=== PATIENT | male | born 1980 | race Caucasian/White ===

== ENCOUNTER 2020-05-29 05:06 | Inpatient (IN) | payer OTHER, SELFPAY ==
--- NOTE | ~2020-05-29 | XR_ITS ---
EXAMINATION: XR elbow RT 2V DATE: 05/30/2020 12:53 INDICATION: Right elbow edema. TECHNIQUE: 2 views of right elbow were obtained. COMPARISON: Right elbow radiographs 07/06/2010 FINDINGS: Bone alignment is normal. No fracture. There is an enthesophyte at the sublime tubercle of proximal ulna. Joint spaces are normal. No elbow joint effusion. There is diffuse subcutaneous edema. IMPRESSION: 1. No fracture. Reviewed, dictated and finalized at location A. ING MACHINE OPERATOR IMPRESSION: 1. No fracture.
--- NOTE | ~2020-05-29 | US_ITS ---
EXAMINATION: US venous doppler [facility] DATE: 05/30/2020 12:48 INDICATION: Upper limb edema. TECHNIQUE: Grayscale ultrasound images without and with compression and Doppler ultrasound images of the bilateral upper extremity veins were obtained. COMPARISON: None. FINDINGS: The visualized portions of the right internal jugular vein, subclavian vein, axillary vein, brachial veins, basilic vein, cephalic vein, radial vein, and ulnar vein are patent. The visualized portions of the left internal jugular vein, subclavian vein, axillary vein, brachial v eins, basilic vein, cephalic vein, radial vein, and ulnar vein are patent. IMPRESSION: 1. No deep venous thrombosis. Reviewed, dictated and finalized at location A. DER OPERATOR EXTERNAL TOOL
[2020-05-29 05:15] VITALS: BP 127/95; PULSE 76; RESP 18; TEMP 36.5; O2SAT 98
[2020-05-29] MEDS: SODIUM CHLORIDE 0.9% IV 1,000 ML 999 ML IV CONT (05:27)
[2020-05-29 05:36] LABS: Basophils Percent Auto 0.5 % (0.2-1.2); Eosinophils Absolute Auto 0.4 K/mm3 (0-0.3); Eosinophils Percent Auto 7.1 % (0-4.4); Hematocrit 43.3 % (42.0-52.0); Hemoglobin 14.7 g/dL (14.0-18.0); Immature Granulocyte Absolute 0.01 K/mm3 (0.00-0.031); Immature Granulocyte Percent A 0.2 % (0-0.5); Lymphocytes Absolute Auto 1.94 K/mm3 (0.9-3.2); Lymphocytes Percent Auto 34.6 % (18.3-44.2); Mean Corpuscular HGB Conc 33.9 g/dl (32-36); Mean Corpuscular Volume 100.2 fl (80-100); Mean Platelet Volume 9.9 fl (7.4-10.4); Monocytes Absolute Auto 0.4 K/mm3 (0.1-0.6); Monocytes Percent Auto 6.4 % (2.6-8.5); Neutrophils Absolute Auto 2.9 K/mm3 (1.3-6.7); Neutrophils Percent Auto 51.2 % (45.5-73.1); Platelet Count Result 216 k/mm3 (150-375); Red Blood Count 4.32 M/mm3 (4.6-6.20); Red Cell Distribution Width 11.6 % (11.5-14.5); White Blood Count 5.6 K/mm3 (4.5-10.0)
--- NOTE | 2020-05-29 05:52 | ED.GENADULT ---
HPI - General Adult General Chief complaint: Extremity Injury, Upper Stated complaint: swelling both arms after lifting weights Time Seen by Provider: 05/29/20 05:09 History of Present Illness HPI narrative: Patient is a 40-year-old male who presents ER with arm swelling. Patient reports couple days ago he did an intense workout with a lot of push-ups and pull-ups. He repeated that a day later. Since then he has developed swelling to his arms as well as discomfort. Is limited range of motion in the right upper extremity at the elbow due to swelling and discomfort. Reports his urine has been more frothy than typical but not darker than typical. Has not had similar symptoms previously. No chest pain or shortness of breath. Related Data Home Medications Medication Instructions Recorded Confirmed No Home Medications 05/29/20 05/29/20 Allergies Allergy/AdvReac Type Severity Reaction Status Date / Time No Known Drug Allergies Allergy Unknown Unknown Verified 05/29/20 05:07 Review of Systems Review of Systems: All systems reviewed & are unremarkable except as noted in HPI and below Constitutional: Constitutional: Denies chills, Denies fever(s) and Denies weakness Cardiovascular: Cardiovascular: Denies chest pain and Denies rapid heart rate Respiratory: Respiratory: Denies cough and Denies dyspnea Gastrointestinal: Gastrointestinal: Denies nausea and Denies vomiting Musculoskeletal: Musculoskeletal: Reports arthralgias, Reports joint swelling and Reports muscle cramps PMFSH Past Medical History Medical History (Updated 05/29/20 @ 20:23 by Edwin De La Torre MD) GERD (gastroesophageal reflux disease) Surgical History Surgical History (Updated 05/29/20 @ 10:42 by Yolanda Michelle PA-C) History of nasal surgery Nasal fracture repair Family History Family History (Updated 05/29/20 @ 11:42 by Yolanda Michelle PA-C) Mother Hypertension Social History Social History (Updated 05/29/20 @ 15:10 by Yolanda Michelle PA-C) Social History: Brett lives at home with his . He is independent in all his ADLs. He manages a bar/restaurant. His PCP is Dr. Pina. He designates his , , as his surrogate decision maker and would like to be a full code. Smoking packs per day: 1 Smoking cigarettes per day: 20.0 Years smoked: 10 Smoking pack-years: 10.00 Smoking status: Former smoker Alcohol intake: current Alcohol use details: 3 alcohol drinks/day Substance use: never Living arrangements: with family Gender identity (if verbalized by the patient): Male Spiritual care concerns: No Exam Narrative: Exam Narrative: GENERAL: Well-appearing, well-nourished, and in no acute distress. HEAD: Normocephalic, atraumatic. CHEST: Clear to auscultation. No respiratory distress. HEART: Regular rate and rhythm. Normal peripheral pulses. EXTREMITIES: Significant edema and swelling from the wrist to the shoulder in the right upper extremity with sensation intact and limited range of motion elbow. Left elbow and proximal forearm with swelling as well as bicep swelling. Range of motion normal. SKIN: Warm, dry, no rash. NEURO: Alert and oriented x3. PSYCH: Normal mood and affect. Course Course Emergency Course: Admit to hospitalist service for rhabdomyolysis and continued hydration. Vital Signs Vital signs: Vital Signs Temperature 97.7 F 05/29/20 05:15 Pulse Rate 76 05/29/20 05:15 Respiratory Rate 18 05/29/20 05:15 Blood Pressure 127/95 H 05/29/20 05:15 Pulse Oximetry 98 05/29/20 05:15 Temperature 98.2 F 05/29/20 14:00 Pulse Rate 69 05/29/20 14:00 Respiratory Rate 18 05/29/20 14:00 Blood Pressure 140/89 05/29/20 14:00 Pulse Oximetry 100 05/29/20 14:00 Medical Decision Making Vital Signs Vital Signs: Vital Signs Temperature 97.7 F 05/29/20 05:15 Pulse Rate 76 05/29/20 05:15 Respiratory Rate 18 05/29/20 05:15 Blood Pressu
[2020-05-29 05:55] LABS: Anion Gap 8 mmol/L (8-16); Blood Urea Nitrogen 9 mg/dL (9-20); Calcium 9.6 mg/dL (8.4-10.2); Carbon Dioxide 26 mmol/L (22-30); Chloride 104 mmol/L (98-107); Estimated Glomerular Filt Rate > 60; Glucose 92 mg/dL (75-110); Potassium 4.6 mmol/L (3.4-5.0); Sodium 138 mmol/L (137-145)
[2020-05-29 06:28] LABS: Creatine Kinase > 16000 U/L (55-170)
[2020-05-29 07:31] VITALS: BP 128/86; PULSE 63; RESP 18; TEMP 36.3; O2SAT 97
--- NOTE | 2020-05-29 07:44 | ADMGEN ---
This patient, Brett Brown, was admitted to Medical Room 249-01. Patient/family oriented to hospital policies and general routines including ID bracelet, bed and alarms, visiting hours, pain management, procedures, bathroom and other care routines, personal items, smoking policy, room service/diet, and visiting hours. Information on how to activate the Rapid Response Team has been discussed. Patient/Family are encouraged to report perceived risks to care and to ask questions if they do not understand what they are told or what they should do.
[2020-05-29 07:52] VITALS: BP 131/83; PULSE 61; RESP 18; TEMP 36.5; O2SAT 100; BMI 28.4
[2020-05-29] MEDS: SODIUM CHLORIDE 0.9% IV 1,000 ML 200 ML IV CONT ×2 (08:07→12:54)
[2020-05-29 09:00] LABS: Alanine Aminotransferase 288 U/L (4-50); Albumin Level 4.8 g/dL (3.5-5.1); Alkaline Phosphatase 48 U/L (38-126); Bilirubin,Total 0.6 mg/dL (0.2-1.3)
[2020-05-29 09:24] LABS: Aspartate Amino Transferase 1498 U/L (17-59)
--- NOTE | 2020-05-29 10:09 | PM.IMHP ---
H&P: HPI History of Present Illness Date/Time: 05/29/20 10:09 Chief Complaint: Muscle pain Narrative: date of admission: 05/29/2020 date of service: 05/29/2020 Brett Brown is a healthy 40 year old male who presented to the emergency department on 05/29/2020 with complaints of muscle soreness. This began 5 days ago. He reports he did a very intense upper body workout with over 100 reps each of pushups and pull-ups. he felt a typical soreness the next day and therefore he completed another workout with high repetition upper body lifting. the next day he felt much worse, reporting 10/10 pain in his upper body with muscle swelling. Any movements or touching of his arms caused him pain. The next day, he was still having pain, although it was improved and he went for a jog. He continue to work at his job where he was lifting heavy boxes. Yesterday, he again went for a jog and noticed that his pain was still ongoing, therefore he researched his symptoms online and felt that he needed to seek medical care. upon presentation to the emergency department, his vital signs were stable, CBC unremarkable, electrolytes were stable, and CK was >16,000. He has been admitted to the hospitalist service for observation. Upon my initial encounter, he states that his pain is improved. He still is endorsing soreness in his arms, especially with extension of the arms. he notes that his upper arms seem a bit swollen bilaterally, especially around the right elbow. He denies discoloration of his extremities, numbness, or tingling. He denies dark urine but does report that his urine has been more foamy than normal. He is being admitted for observation. Supervising physician for this history and physical is Dr. Maykel Taylor. Review of Systems Review of Systems: Narrative: All systems reviewed with pertinent positives and negatives as per HPI. Additionally, he denies nausea, vomiting, fever, chills, dizziness, lightheadedness, weakness, shortness breath, cough, chest pain, or palpitations. denies dysuria, hematuria, urgency, or frequency. Denies abdominal pain, cramping, bloating. He reports regular bowel movements. Denies headache. [facility] Past Medical History Medical History (Updated 05/29/20 @ 11:42 by Yolanda Michelle PA-C) GERD (gastroesophageal reflux disease) Surgical History Surgical History (Updated 05/29/20 @ 10:42 by Yolanda Michelle PA-C) History of nasal surgery Nasal fracture repair Family History Family History (Updated 05/29/20 @ 11:42 by Yolanda Michelle PA-C) Mother Hypertension Social History Social History (Updated 05/29/20 @ 15:10 by Yolanda Michelle PA-C) Social History: Brett lives at home with his . He is independent in all his ADLs. He manages a bar/restaurant. His PCP is Dr. Pina. He designates his , , as his surrogate decision maker and would like to be a full code. Smoking packs per day: 1 Smoking cigarettes per day: 20.0 Years smoked: 10 Smoking pack-years: 10.00 Smoking status: Former smoker Alcohol intake: current Alcohol use details: 3 alcohol drinks/day Substance use: never Living arrangements: with family Gender identity (if verbalized by the patient): Male Spiritual care concerns: No Meds Home Medications and Allergies Home Medications Medication Instructions Recorded Confirmed Type No Home Medications 05/29/20 05/29/20 History Allergies Allergy/AdvReac Type Severity Reaction Status Date / Time No Known Drug Allergies Allergy Unknown Unknown Verified 05/29/20 05:07 Vital Signs Vital Signs - 24 hr 05/29/20 05:15 05/29/20 07:31 05/29/20 07:52 Temperature 97.7 F 97.4 F L 97.7 F Pulse Rate 76 63 61 Respiratory Rate 18 18 18 Blood Pressure 127/95 H 128/86 131/83 Pulse Oximetry 98 97 100 Exam Narrative: Exam Narrative: Mr. Brown is a well-nourished, well-appearing 40-year-old male who is
[2020-05-29 14:00] VITALS: BP 140/89; PULSE 69; RESP 18; TEMP 36.8; O2SAT 100
[2020-05-29 14:44] LABS: Add Urine Microscopic? YES; Appearance Urine Clear (Clear); Bilirubin Urine Negative (Negative); Blood Urine Negative (Negative); Color Urine Straw (Yellow); Glucose Urine UA Negative (Negative); Ketones Urine Trace mg/dL (Negative); Leukocyte Esterase Ur Negative LEU/UL (NEGATIVE); Mucus Urine Rare /lpf; Nitrate Urine Negative (Negative); Protein Urine Negative (Negative); RBC Urine 0-2 /hpf (0-2); Specific Grav Ur 1.008 (1.001-1.035); Urobilinogen Urine Negative mg/dL (<2.0)
[2020-05-29 15:26] LABS: Creatine Kinase > 16000 U/L (55-170)
[2020-05-29] MEDS: SODIUM CHLORIDE 0.9% IV 1,000 ML 150 ML IV CONT ×2 (17:44→23:26)
[2020-05-29] MEDS: HYDROcodone/acetaminophen (*CRX) 5-325 MG TABLET 1 TAB PO ×2 (17:47→21:40)
[2020-05-29 20:00] VITALS: BP 131/71; PULSE 60; RESP 16; TEMP 36.5; O2SAT 100
[2020-05-29] MEDS: MELATONIN 5 MG TABLET PO (21:40)
[2020-05-30 05:04] VITALS: BP 120/79; PULSE 58; RESP 16; TEMP 36.6; O2SAT 100
[2020-05-30] MEDS: SODIUM CHLORIDE 0.9% IV 1,000 ML 150 ML IV CONT (05:21)
[2020-05-30] MEDS: HYDROcodone/acetaminophen (*CRX) 5-325 MG TABLET 1 TAB PO (05:23)
[2020-05-30 05:51] LABS: Hemoglobin 12.9 g/dL (14.0-18.0); Mean Corpuscular HGB Conc 33.1 g/dl (32-36); Mean Corpuscular Hemoglobin 34.3 pg (26-34); Mean Corpuscular Volume 103.7 fl (80-100); Mean Platelet Volume 10.3 fl (7.4-10.4); Platelet Count Result 183 k/mm3 (150-375); Red Blood Count 3.76 M/mm3 (4.6-6.20); Red Cell Distribution Width 11.9 % (11.5-14.5); White Blood Count 5.3 K/mm3 (4.5-10.0)
[2020-05-30 07:55] LABS: Alanine Aminotransferase 187 U/L (4-50); Albumin Level 3.7 g/dL (3.5-5.1); Alkaline Phosphatase 42 U/L (38-126); Anion Gap 1 mmol/L (8-16); Aspartate Amino Transferase 888 U/L (17-59); Bilirubin,Total 0.3 mg/dL (0.2-1.3); Blood Urea Nitrogen 11 mg/dL (9-20); Calcium 8.8 mg/dL (8.4-10.2); Carbon Dioxide 30 mmol/L (22-30); Chloride 108 mmol/L (98-107); Estimated CRCL calculation 94 ml/min; Estimated Glomerular Filt Rate > 60; Glucose 94 mg/dL (75-110); Sodium 139 mmol/L (137-145)
[2020-05-30 09:21] LABS: Creatine Kinase 15191 U/L (55-170)
--- NOTE | 2020-05-30 12:13 | PM.IMPN ---
Progress Note: A&P Assessment and Plan (1) Rhabdomyolysis: Code(s): M62.82 - Rhabdomyolysis Status: Acute Assessment and Plan: Nontraumatic secondary to muscle strain. He does not take any exacerbating medications or supplements. Kidney function is normal. LFTs elevated. UA negative for blood. CK has demonstrated slight improvement. Continue aggressive IV fluid rehydration. Trend CK Monitor LFTs and kidney function. Follow intake and output. Administer 20 mg IV Lasix for diuresis. (2) Elevated LFTs: Code(s): R94.5 - Abnormal results of liver function studies Status: Chronic Assessment and Plan: Likely secondary to rhabdomyolysis as above. Review of office visits demonstrates history of elevated LFTs which was felt to be related to alcohol use and patient cut down alcohol intake. LFTs improved today. Continue to monitor (3) Muscle strain: Code(s): T14.8XXA - Other injury of unspecified body region, initial encounter Status: Acute Assessment and Plan: Secondary to intense physical workout. Patient reports doing 100 reps of pushups and pullups. He developed soreness in his bilateral arms and chest wall. Strength 5/5, bilateral senior outside sales representative strength equal. Neurovascularly intact with good pulses. No evidence to suggest compartment syndrome or neurovascular compromise. Monitor. Can consider imaging if no improvement. Analgesics available as needed for pain. (4) Edema of both upper extremities: Code(s): R60.0 - Localized edema Status: Acute Assessment and Plan: He has edema of the bilateral upper extremities (R>L), most significant at right elbow. Improved on exam today. Full active ROM. No pain. No erythema or warmth. No findings to suggest underlying infection. Nontender to palpation. Check bilateral UE venous doppler to rule out DVT X-ray right elbow to evaluate joint. Consider compression with toya wrap dependent on imaging. Subjective Date/time seen: 05/30/20 12:13 Interval history: Date of service: 05/30/2020 Brett Brown is a healthy 40 year old male who is seen in follow-up for rhabdomyolysis. He is feeling very well today. He has no concerns. He is still endorsing swelling in his upper extremities. He feels that it is improved today. He also feels that he has less discomfort with extension of the upper extremities. His muscle soreness is improving. He denies numbness or tingling. Denies color changes. He has been urinating frequently. Denies dark urine. Appetite has been good. Denies nausea, vomiting, fever, or chills. No shortness of breath, cough, chest pain, or palpitations. He is eager to return home. Review of Systems Review of Systems: All systems reviewed & are unremarkable except as noted in HPI and below Exam Narrative: Exam Narrative: Mr. Brown is a well-nourished, well-appearing 40-year-old male who is lying semi recumbent in bed. He appears comfortable and is in NARD. HR 61, BP 131/83, RR 18, T 97.7?, 100% on room air Neuro: awake, alert and oriented x4, speech clear, no focal neuro deficits noted, bilateral senior outside sales representative strength equal HEENMT: normocephalic, atraumatic, EOMI, sclerae anicteric, moist oral mucosa, tongue midline, nares patent Neck: supple, no lymphadenopathy Respiratory: clear to auscultation bilaterally, nonlabored breathing Cardio: regular rate, regular rhythm with S1-S2 Abdomen: nondistended, normoactive bowel sounds, soft, nontender to palpation, no rigidity or guarding Extremities: upper extremities slightly edematous bilaterally, nonpitting (R>L). Right elbow is edematous. 2+ radial pulses. Neurovascularly intact. No discoloration. Brisk capillary refill. Full active ROM. Bilateral lower extremities with no edema, erythema, cyanosis, clubbing, or tenderness to palpation, DP pulses 2+ bilaterally Skin: no rashes or lesions, warm and dry Psych: appropriate mood and aff
[2020-05-30] MEDS: SODIUM CHLORIDE 0.9% IV 1,000 ML 200 ML IV CONT ×3 (13:21→23:39)
[2020-05-30 14:00] VITALS: BP 132/78; PULSE 61; RESP 16; TEMP 35.7; O2SAT 100
[2020-05-30 16:00] VITALS: BP 132/78; PULSE 61; RESP 16; TEMP 35.7; O2SAT 100
[2020-05-30] MEDS: FUROSEMIDE INJ 40 MG/4 ML VIAL 20 MG IV PUSH (16:54)
[2020-05-30] MEDS: MELATONIN 5 MG TABLET PO (20:38)
[2020-05-30 21:37] VITALS: BP 126/71; PULSE 75; RESP 16; TEMP 36.4; O2SAT 100
[2020-05-31] MEDS: SODIUM CHLORIDE 0.9% IV 1,000 ML 200 ML IV CONT ×3 (04:45→15:19)
[2020-05-31 06:07] VITALS: BP 117/81; PULSE 64; RESP 16; TEMP 36.3; O2SAT 100
[2020-05-31 06:20] LABS: Hematocrit 38.3 % (42.0-52.0); Hemoglobin 12.6 g/dL (14.0-18.0); Mean Corpuscular HGB Conc 32.9 g/dl (32-36); Mean Corpuscular Hemoglobin 33.6 pg (26-34); Mean Corpuscular Volume 102.1 fl (80-100); Mean Platelet Volume 10.8 fl (7.4-10.4); Platelet Count Result 193 k/mm3 (150-375); Red Blood Count 3.75 M/mm3 (4.6-6.20); Red Cell Distribution Width 11.6 % (11.5-14.5); White Blood Count 5.4 K/mm3 (4.5-10.0)
[2020-05-31 06:36] LABS: Alanine Aminotransferase 176 U/L (4-50); Albumin Level 3.8 g/dL (3.5-5.1); Alkaline Phosphatase 48 U/L (38-126); Anion Gap 4 mmol/L (8-16); Aspartate Amino Transferase 741 U/L (17-59); Bilirubin,Total 0.2 mg/dL (0.2-1.3); Blood Urea Nitrogen 10 mg/dL (9-20); Calcium 8.8 mg/dL (8.4-10.2); Carbon Dioxide 28 mmol/L (22-30); Chloride 107 mmol/L (98-107); Estimated CRCL calculation 107 ml/min; Estimated Glomerular Filt Rate > 60; Glucose 93 mg/dL (75-110); Potassium 3.8 mmol/L (3.4-5.0); Sodium 139 mmol/L (137-145)
[2020-05-31 09:14] LABS: Creatine Kinase 10989 U/L (55-170)
[2020-05-31 14:00] VITALS: BP 144/91; PULSE 65; RESP 16; TEMP 36.5; O2SAT 100
--- NOTE | 2020-05-31 16:09 | PM.IMPN ---
Progress Note: A&P Assessment and Plan (1) Rhabdomyolysis: Code(s): M62.82 - Rhabdomyolysis Status: Acute Assessment and Plan: Nontraumatic secondary to muscle strain. He does not take any exacerbating medications or supplements. Kidney function is normal. LFTs elevated. UA negative for blood. CK slowly improving. Urine output is good. Continue aggressive IV fluid rehydration. Trend CK Monitor LFTs and kidney function. Follow intake and output. Administer 20 mg IV Lasix for diuresis. (2) Elevated LFTs: Code(s): R94.5 - Abnormal results of liver function studies Status: Chronic Assessment and Plan: Likely secondary to rhabdomyolysis as above. Review of office visits demonstrates history of elevated LFTs which was felt to be related to alcohol use and patient cut down alcohol intake. LFTs improved today. Continue to monitor (3) Muscle strain: Code(s): T14.8XXA - Other injury of unspecified body region, initial encounter Status: Acute Assessment and Plan: Secondary to intense physical workout. Patient reports doing 100 reps of pushups and pullups. He developed soreness in his bilateral arms and chest wall. Strength 5/5, bilateral subacute nurse strength equal. Neurovascularly intact with good pulses. No evidence to suggest compartment syndrome or neurovascular compromise. Discomfort is improving. Monitor clinically. Analgesics available as needed for pain. (4) Edema of both upper extremities: Code(s): R60.0 - Localized edema Status: Acute Assessment and Plan: He has edema of the bilateral upper extremities (R>L), most significant at right elbow. Improved on exam today. Full active ROM. No erythema or warmth. No findings to suggest underlying infection. Nontender to palpation. Bilateral UE venous doppler negative for DVT. X-ray with no fracture or joint effusion with findings of diffuse subcutaneous edema, which is likely secondary to rhabdo. Elevate extremities. GISELLE wrap can be applied if patient desires. Subjective Date/time seen: 05/31/20 16:09 Interval history: Date of service: 05/31/2020 Brett Brown is a healthy 40 year old male who is seen in follow-up for rhabdomyolysis. he is feeling well today and has no concerns. He reports he is getting a little bit antsy about being stuck in the hospital, but overall he is tolerating this pretty well. He is not having any pain today. He notes that his left arm feels a little bit sore and he has some tightness with extension of it. Overall, he does think that his muscle pain is improving. He also reports improved swelling of his upper extremities. He has been urinating frequently due to IV fluids. He has no additional concerns. He has been eating well. He has no shortness of breath or cough. Denies lower extremity swelling. Review of Systems Review of Systems: All systems reviewed & are unremarkable except as noted in HPI and below Exam Narrative: Exam Narrative: Mr. Brown is a well-nourished, well-appearing 40-year-old male who is lying semi recumbent in bed. He appears comfortable and is in NARD. HR 64, BP 117/81 R 16, T 97.3?, 100% on room air Neuro: awake, alert and oriented x4, speech clear, no focal neuro deficits noted, bilateral subacute nurse strength equal HEENMT: normocephalic, atraumatic, EOMI, sclerae anicteric, moist oral mucosa, tongue midline, nares patent Neck: supple, no lymphadenopathy Respiratory: clear to auscultation bilaterally, nonlabored breathing Cardio: regular rate, regular rhythm with S1-S2 Abdomen: nondistended, normoactive bowel sounds, soft, nontender to palpation, no rigidity or guarding Extremities: upper extremities slightly edematous bilaterally, nonpitting (R>L). Right elbow is edematous. 2+ radial pulses. Neurovascularly intact. No discoloration. Brisk capillary refill. Full active ROM. Bilateral lower extremities with no edema, e
[2020-05-31] MEDS: FUROSEMIDE INJ 40 MG/4 ML VIAL 20 MG IV PUSH (17:10)
[2020-05-31] MEDS: MELATONIN 5 MG TABLET PO (20:27)
[2020-05-31] MEDS: SODIUM CHLORIDE 0.9% IV 1,000 ML 175 ML IV CONT (20:29)
[2020-05-31 22:00] VITALS: BP 161/77; PULSE 55; RESP 20; TEMP 36.1; O2SAT 99
[2020-06-01] MEDS: SODIUM CHLORIDE 0.9% IV 1,000 ML 175 ML IV CONT ×3 (02:20→14:40)
[2020-06-01 05:47] LABS: Hematocrit 36.8 % (42.0-52.0); Mean Corpuscular HGB Conc 32.6 g/dl (32-36); Mean Corpuscular Hemoglobin 33.3 pg (26-34); Mean Corpuscular Volume 102.2 fl (80-100); Mean Platelet Volume 10.5 fl (7.4-10.4); Platelet Count Result 180 k/mm3 (150-375); Red Cell Distribution Width 11.5 % (11.5-14.5); White Blood Count 5.1 K/mm3 (4.5-10.0)
[2020-06-01 05:58] LABS: Alanine Aminotransferase 157 U/L (4-50); Albumin Level 3.7 g/dL (3.5-5.1); Alkaline Phosphatase 37 U/L (38-126); Anion Gap 7 mmol/L (8-16); Aspartate Amino Transferase 507 U/L (17-59); Bilirubin,Total 0.2 mg/dL (0.2-1.3); Blood Urea Nitrogen 13 mg/dL (9-20); Calcium 8.7 mg/dL (8.4-10.2); Carbon Dioxide 24 mmol/L (22-30); Chloride 110 mmol/L (98-107); Estimated CRCL calculation 107 ml/min; Estimated Glomerular Filt Rate > 60; Glucose 99 mg/dL (75-110); Potassium 3.9 mmol/L (3.4-5.0); Sodium 141 mmol/L (137-145)
[2020-06-01 06:00] VITALS: BP 133/80; PULSE 51; RESP 21; TEMP 36.6; O2SAT 100
[2020-06-01 06:29] LABS: Creatine Kinase 7092 U/L (55-170)
--- NOTE | 2020-06-01 09:11 | PM.IMPN ---
Progress Note: A&P Assessment and Plan (1) Rhabdomyolysis: Code(s): M62.82 - Rhabdomyolysis Status: Acute Assessment and Plan: Nontraumatic secondary to muscle strain. He does not take any exacerbating medications or supplements. Kidney function is normal. LFTs elevated. UA negative for blood. CK continues to improve. Urine output is good. Continue IV fluid rehydration, will decrease rate to 150cc/hr Trend CK Monitor LFTs and kidney function Follow intake and output (2) Elevated LFTs: Code(s): R94.5 - Abnormal results of liver function studies Status: Chronic Assessment and Plan: Likely secondary to rhabdomyolysis as above. Review of office visits demonstrates history of elevated LFTs which was felt to be related to alcohol use and patient cut down alcohol intake. LFTs continue to improve. Continue to monitor Will check hepatitis panel (3) Muscle strain: Code(s): T14.8XXA - Other injury of unspecified body region, initial encounter Status: Acute Assessment and Plan: Secondary to intense physical workout. Patient reports doing 100 reps of pushups and pullups. He developed soreness in his bilateral arms and chest wall. Strength 5/5, bilateral warehouse director strength equal. Neurovascularly intact with good pulses. No evidence to suggest compartment syndrome or neurovascular compromise. Monitor clinically Analgesics available as needed for pain (4) Edema of both upper extremities: Code(s): R60.0 - Localized edema Status: Acute Assessment and Plan: He has edema of the bilateral upper extremities (R>L) which is improving. He has full active ROM and no erythema, warmth, or tenderness. No findings to suggest underlying infection.Bilateral UE venous doppler negative for DVT. X-ray with no fracture or joint effusion with findings of diffuse subcutaneous edema, which is likely secondary to rhabdo. Elevate extremities GISELLE wrap can be applied if patient desires Additional Plan Order EKG due to ectopy, he did just drink 3 cups of coffee which likely provoked this. Subjective Date/time seen: 06/01/20 09:11 Interval history: Mr. Brown is a healthy 40 y.o. male with PMH significant for GERD who is seen in follow-up for rhabdomyolysis secondary to muscle strain following an intense upper body workout. He is doing well. He reports no significant muscle pain. He notes a bit of swelling in the upper extremities, more prominent on the right, but overall improved. He notes frequent urination due to IV fluids. He is very eager to go home. Bowels are regular. He has no additional complaints. He is tolerating his diet well. He reports no palpitations. Review of Systems Review of Systems: All systems reviewed & are unremarkable except as noted in HPI and below Exam Narrative: Exam Narrative: General: Very pleasant, well-developed, and well-nourished 40 y.o. male who is sitting in the chair watching TV in no acute distress. HEENMT: Normocephalic and atraumatic. Sclera anicteric. EOMI. Oral mucosa moist. Neck: Supple. Cardiac: Regular rate and rhythm. S1 and S2 normal. Occasional ectopy. Lungs: Effort normal. Lungs are clear to auscultation bilaterally without wheezes, rhonchi, or rales. Abdomen: Bowel sounds positive. Abdomen is soft, non-distended, and non-tender. Extremities: Scant LUE edema and 1+ RUE edema. No lower extremity edema. Radial and pedal pulses 2+ bilaterally. Neurological: Alert. Exam non-focal to casual conversation. Speech is clear. Skin: Warm and dry. Psychiatric: Judgment and insight intact. Pleasant mood and appropriate affect. Objective Data Vital Signs Vital Signs: Vital Signs - 24 hr 05/31/20 14:00 05/31/20 22:00 06/01/20 06:00 Temperature 97.7 F 97.0 F L 97.8 F Pulse Rate 65 55 L 51 L Respiratory Rate 16 20 21 H Blood Pressure 144/91 H 161/77 H 133/80 Pulse Oximetry 100 99 100 Intake/Output I
--- NOTE | 2020-06-01 09:36 | ECG_ITS ---
Measurements Intervals [place] Rate: 73 P: 44 DE: 199 QRS: 19 QRSD: 88 T: 17 QT: 381 QTc: 420 Interpretive Statements SINUS RHYTHM VENTRICULAR BIGEMINY AND TRIGEMINY VOLTAGE CRITERIA FOR LVH BASELINE ARTIFACT- I, II, III, AVR, AVL, AVF, V1-V2 ABNORMAL ECG Electronically Signed On 06-01-2020 11:58:53 OUTBOUND TELEMARKETER by Cristino Bradford D.O.
[2020-06-01 10:51] LABS: Hepatitis B Surface Antigen Negative (Negative)
[2020-06-01 10:57] LABS: HAV RESULT Negative (Negative); Hepatitis B Core IgM Result Negative (Negative)
[2020-06-01 11:09] LABS: Hepatitis C Virus Antibody Negative (Negative)
--- NOTE | 2020-06-01 13:20 | PC.NURSE ---
On 06/01/20, the student, [ Dilma Keane], provided care and completed [facility] documentation on this patient. I have reviewed the student's documentation and agree with the findings.
[2020-06-01 15:00] VITALS: PULSE 55; RESP 12; TEMP 36.6; O2SAT 100
[2020-06-01 15:43] VITALS: BP 138/90
[2020-06-01 21:56] VITALS: BP 135/78; PULSE 96; RESP 18; TEMP 36.5; O2SAT 100
[2020-06-01] MEDS: MELATONIN 5 MG TABLET PO (22:28)
[2020-06-01] MEDS: ENOXAPARIN 40 MG/0.4 ML SYRINGE SUB-Q (22:28)
[2020-06-01] MEDS: SODIUM CHLORIDE 0.9% IV 1,000 ML 125 ML IV CONT (22:28)
[2020-06-02] VITALS: BP 151/86; PULSE 90; RESP 20; TEMP 36.1; O2SAT 96
--- NOTE | 2020-06-02 | ECHO_ITS ---
Patient Info Name: Brett Brown Age: 40 years : 1980 Gender: Male Ht: 66 in Wt: 176 lbs BSA: 1.95 m2 HR: 70 bpm BP: 134 / 87 mmHg Heart Rhythm: Sinus Arrhythmia Technical Quality: Good Exam Date: 06/02/2020 10:32 AM Exam Location: [facility] Patient Status: Inpatient Admit Date: 05/31/2020 Staff Ordering Physician: Julianna Cruz PA-C Fast Food Worker: Mitchel Moseley RDCS Attending Provider: Julianna Cruz PA-C Referring Physician: Anthony MORRISON; Exam Type: CA echo doppler color flow Study Info Indications I49.9 - Cardiac arrhythmia, unspecified Complete two-dimensional, color flow and Doppler transthoracic echocardiogram is performed. History/Risk Factors Rhabdomyolosis; LVH on EKG w/ bigeminy and trigeminy. Summary 1. Complete two-dimensional, color flow and Doppler transthoracic echocardiogram is performed. 2. Normal left ventricular size with borderline left ventricular hypertrophy. Good systolic function of all segments with an ejection fraction of 60-65%. There were no focal wall motion abnormalities. Normal diastolic function. 3. No valvular heart disease. 4. Normal sinus rhythm with PVCs. Left Ventricle Left ventricular chamber dimension is normal. Left ventricular systolic function is normal, estimated at 60-65%. There is no increased left ventricular wall thickness. Left ventricular septal wall motion is normal. The left ventricular diastolic function is normal. Right Ventricle Right ventricular chamber dimension is normal. Right ventricular systolic function is normal. Left Atria Left atrial chamber dimension is normal. Right Atria Right atrial chamber dimension is normal. Aortic Valve The aortic valve is trileaflet. There is no aortic valve sclerosis. There is no aortic valve stenosis. There is no aortic valve regurgitation. Pulmonic Valve The pulmonic valve is normal. There is no pulmonic valve stenosis. There is no pulmonic regurgitation. Mitral Valve The mitral valve has normal leaflets. There is no mitral valve stenosis. There is trace mitral valve regurgitation. Tricuspid Valve The tricuspid valve leaflets are normal. There is no significant tricuspid valve stenosis. There is trace tricuspid valve regurgitation. No pulmonary hypertension, estimated pulmonary arterial systolic pressure is 33 mmHg. Pericardium/Pleural The pericardium appears normal. There is no pericardial effusion. Inferior Vena Cava Normal inferior vena cava with >50% collapse upon inspiration consistent with Empty right atrial pressure, 5 mmHg. Aorta The aortic root size at the sinus of Valsalva is normal. The prox ascending aorta size is normal. Left Ventricular Outflow Tract Name Value Normal LVOT 2D LVOT Diameter 2.3 cm LVOT Doppler LVOT Peak Gradient 5 mmHg LVOT Mean Gradient 3 mmHg LVOT VTI 24 cm LVOT VTI/AV VTI Ratio 0.9 LVOT Stroke Volume 94 ml LVO
[2020-06-02 05:00] VITALS: BP 134/87; PULSE 51; RESP 18; TEMP 36.4; O2SAT 98
[2020-06-02] MEDS: SODIUM CHLORIDE 0.9% IV 1,000 ML 125 ML IV CONT ×3 (06:21→23:49)
[2020-06-02 07:05] LABS: Basophils Absolute Auto 0.1 K/mm3 (0.0-0.1); Eosinophils Absolute Auto 0.4 K/mm3 (0-0.3); Eosinophils Percent Auto 7.2 % (0-4.4); Hematocrit 39.6 % (42.0-52.0); Hemoglobin 13.2 g/dL (14.0-18.0); Immature Granulocyte Absolute 0.01 K/mm3 (0.00-0.031); Immature Granulocyte Percent A 0.2 % (0-0.5); Lymphocytes Absolute Auto 1.85 K/mm3 (0.9-3.2); Lymphocytes Percent Auto 35.9 % (18.3-44.2); Mean Corpuscular HGB Conc 33.3 g/dl (32-36); Mean Corpuscular Volume 102.1 fl (80-100); Mean Platelet Volume 10.7 fl (7.4-10.4); Monocytes Absolute Auto 0.4 K/mm3 (0.1-0.6); Monocytes Percent Auto 8.5 % (2.6-8.5); Neutrophils Absolute Auto 2.4 K/mm3 (1.3-6.7); Neutrophils Percent Auto 47.2 % (45.5-73.1); Platelet Count Result 203 k/mm3 (150-375); Red Blood Count 3.88 M/mm3 (4.6-6.20); Red Cell Distribution Width 11.6 % (11.5-14.5); White Blood Count 5.2 K/mm3 (4.5-10.0)
[2020-06-02 07:06] LABS: Alanine Aminotransferase 164 U/L (4-50); Albumin Level 4.5 g/dL (3.5-5.1); Alkaline Phosphatase 35 U/L (38-126); Anion Gap 7 mmol/L (8-16); Aspartate Amino Transferase 414 U/L (17-59); Bilirubin,Total 0.3 mg/dL (0.2-1.3); Blood Urea Nitrogen 13 mg/dL (9-20); Calcium 9.6 mg/dL (8.4-10.2); Carbon Dioxide 29 mmol/L (22-30); Chloride 106 mmol/L (98-107); Estimated CRCL calculation 107 ml/min; Estimated Glomerular Filt Rate > 60; Glucose 75 mg/dL (75-110); Potassium 3.5 mmol/L (3.4-5.0); Sodium 142 mmol/L (137-145)
[2020-06-02 08:11] LABS: Folic Acid 13.5 ng/mL (2.76->20)
[2020-06-02 08:34] LABS: Creatine Kinase 4970 U/L (55-170)
--- NOTE | 2020-06-02 09:02 | PM.IMPN ---
Progress Note: A&P Assessment and Plan (1) Rhabdomyolysis: Code(s): M62.82 - Rhabdomyolysis Status: Acute Assessment and Plan: Nontraumatic secondary to muscle strain. He does not take any exacerbating medications or supplements. Kidney function is normal. LFTs elevated. UA negative for blood. CK continues to improve. Urine output is good. Continue IV fluid rehydration Trend CK Monitor LFTs and kidney function Follow intake and output (2) Elevated LFTs: Code(s): R94.5 - Abnormal results of liver function studies Status: Chronic Assessment and Plan: Likely secondary to rhabdomyolysis as above. Review of office visits demonstrates history of elevated LFTs which was felt to be related to alcohol use and patient cut down alcohol intake. LFTs continue to improve. Hepatitis panel was negative. Continue to monitor (3) Muscle strain: Code(s): T14.8XXA - Other injury of unspecified body region, initial encounter Status: Acute Assessment and Plan: Secondary to intense physical workout. Patient reports doing 100 reps of pushups and pullups. He developed soreness in his bilateral arms and chest wall. Strength 5/5, bilateral disk sander strength equal. Neurovascularly intact with good pulses. No evidence to suggest compartment syndrome or neurovascular compromise. Monitor clinically Analgesics available as needed for pain (4) Edema of both upper extremities: Code(s): R60.0 - Localized edema Status: Acute Assessment and Plan: He has edema of the bilateral upper extremities (R>L) which has nearly resolved. He has full active ROM and no erythema, warmth, or tenderness. No findings to suggest underlying infection.Bilateral UE venous doppler negative for DVT. X-ray with no fracture or joint effusion with findings of diffuse subcutaneous edema, which is likely secondary to rhabdo. Elevate extremities GISELLE wrap can be applied if patient desires (5) LVH (left ventricular hypertrophy): Code(s): I51.7 - Cardiomegaly Status: Acute Assessment and Plan: EKG demonstrated voltage criteria for LVH. Check echocardiogram for further evaluation (6) PVC (premature ventricular contraction): Code(s): I49.3 - Ventricular premature depolarization Status: Acute Assessment and Plan: EKG demonstrated ventricular bigeminy and trigeminy, ordered due to auscultation of ectopy. He notes that he is asymptomatic from this standpoint and this is likely provoked by heavy caffeine use. He drinks several cups of coffee and noted he had 3 cups prior to the EKG. Encourage decreased caffeine use Echocardiogram ordered to evaluate for LVH seen on EKG and will assess for any underlying structural disease Subjective Date/time seen: 06/02/20 09:02 Interval history: Mr. Brown is a healthy 40 y.o. male with PMH significant for GERD who is seen in follow-up for rhabdomyolysis secondary to muscle strain following an intense upper body workout. He continues to report improvement. He does have bit of soreness/tension in the LUE bicep muscle but overall improved. He reports no significant arm swelling. He notes he was a bit anxious and thought his heart was racing early when he woke up but notes no other palpitations. He denies chest pain and shortness of breath. He denies cough. He denies nausea, vomiting, and abdominal pain. His bowels are regular. He has no other complaints. He is very anxious to go home. Review of Systems Review of Systems: All systems reviewed & are unremarkable except as noted in HPI and below Exam Narrative: Exam Narrative: General: Pleasant, well-developed, and well-nourished 40 y.o. male sitting in the chair in no acute distress. HEENMT: Normocephalic and atraumatic. Sclera anicteric. EOMI. Oral mucosa moist. Neck: Supple. Cardiac: Regular rate and rhythm. S1 and S2 normal. Occasional ectopy.
[2020-06-02 14:00] VITALS: BP 152/80; PULSE 62; RESP 16; TEMP 36.8; O2SAT 100
[2020-06-02 20:00] VITALS: BP 127/79; PULSE 78; RESP 18; TEMP 36.6; O2SAT 99
[2020-06-02] MEDS: ENOXAPARIN 40 MG/0.4 ML SYRINGE SUB-Q (21:03)
[2020-06-03 04:00] VITALS: BP 130/81; PULSE 73; RESP 18; TEMP 36.8; O2SAT 100
[2020-06-03 05:55] LABS: Hemoglobin 12.6 g/dL (14.0-18.0); Mean Corpuscular HGB Conc 33.2 g/dl (32-36); Mean Corpuscular Hemoglobin 33.2 pg (26-34); Mean Platelet Volume 10.6 fl (7.4-10.4); Platelet Count Result 206 k/mm3 (150-375); Red Cell Distribution Width 11.4 % (11.5-14.5); White Blood Count 5.4 K/mm3 (4.5-10.0)
[2020-06-03 06:04] LABS: Anion Gap 5 mmol/L (8-16); Blood Urea Nitrogen 11 mg/dL (9-20); Calcium 9.1 mg/dL (8.4-10.2); Carbon Dioxide 29 mmol/L (22-30); Chloride 107 mmol/L (98-107); Estimated CRCL calculation 94 ml/min; Estimated Glomerular Filt Rate > 60; Glucose 87 mg/dL (75-110); Potassium 3.7 mmol/L (3.4-5.0); Sodium 141 mmol/L (137-145)
[2020-06-03 06:10] LABS: Creatine Kinase 2049 U/L (55-170)
[2020-06-03] MEDS: SODIUM CHLORIDE 0.9% IV 1,000 ML 125 ML IV CONT ×2 (07:28→20:58)
[2020-06-03 07:46] LABS: Alanine Aminotransferase 139 U/L (4-50); Albumin Level 3.9 g/dL (3.5-5.1); Alkaline Phosphatase 30 U/L (38-126); Aspartate Amino Transferase 241 U/L (17-59); Bilirubin,Total 0.2 mg/dL (0.2-1.3)
--- NOTE | 2020-06-03 08:53 | PM.IMPN ---
Progress Note: A&P Assessment and Plan (1) Rhabdomyolysis: Code(s): M62.82 - Rhabdomyolysis Status: Acute Assessment and Plan: Nontraumatic secondary to muscle strain. He does not take any exacerbating medications or supplements. Kidney function is normal. LFTs elevated. UA negative for blood. CK continues to improve. Urine output is good. Continue IV fluid rehydration Trend CK Monitor LFTs and kidney function Follow intake and output Hopeful discharge tomorrow pending CK (2) Elevated LFTs: Code(s): R94.5 - Abnormal results of liver function studies Status: Chronic Assessment and Plan: Likely secondary to rhabdomyolysis as above. Review of office visits demonstrates history of elevated LFTs which was felt to be related to alcohol use and patient cut down alcohol intake. LFTs continue to improve. Hepatitis panel was negative. Continue to monitor Plan for repeat CMP in 1 week for monitoring (3) Muscle strain: Code(s): T14.8XXA - Other injury of unspecified body region, initial encounter Status: Acute Assessment and Plan: Secondary to intense physical workout. Patient reports doing 100 reps of pushups and pullups. He developed soreness in his bilateral arms and chest wall. Strength 5/5, bilateral public health sanitarian technician strength equal. Neurovascularly intact with good pulses. No evidence to suggest compartment syndrome or neurovascular compromise. Monitor clinically Analgesics available as needed for pain (4) Edema of both upper extremities: Code(s): R60.0 - Localized edema Status: Acute Assessment and Plan: He had edema of the bilateral upper extremities (R>L) which has resolved. He has full active ROM and no erythema, warmth, or tenderness. No findings to suggest underlying infection.Bilateral UE venous doppler negative for DVT. X-ray with no fracture or joint effusion with findings of diffuse subcutaneous edema, which is likely secondary to rhabdo. Elevate extremities GISELLE wrap can be applied if patient desires (5) LVH (left ventricular hypertrophy): Code(s): I51.7 - Cardiomegaly Status: Acute Assessment and Plan: EKG demonstrated voltage criteria for LVH. Echocardiogram showed borderline hypertrophy, likely secondary to intense physical exercise. (6) PVC (premature ventricular contraction): Code(s): I49.3 - Ventricular premature depolarization Status: Acute Assessment and Plan: EKG demonstrated ventricular bigeminy and trigeminy, ordered due to auscultation of ectopy. He notes that he is asymptomatic from this standpoint and this is likely provoked by heavy caffeine use. He drinks several cups of coffee and noted he had 3 cups prior to the EKG. Echo showed mild hypertrophy of LV and no other abnormalities. Encourage decreased caffeine use, avoid energy drinks and other stimulants Subjective Date/time seen: 06/03/20 08:53 Interval history: Mr. Brown is a healthy 40 y.o. male with PMH significant for GERD who is seen in follow-up for rhabdomyolysis secondary to muscle strain following an intense upper body workout. He is doing well. He is very eager to go home. He reports that his upper extremity pain has nearly resolved. He has no abdominal pain, nausea, or vomiting. He has no shortness of breath, chest pain, or palpitations. He has no complaints of leg pain or swelling. Bowels are a bit slower than usual since he is less active but still moving fine. He has no voiding concerns but notes increased frequency given IV fluids. He does feel he has retained a bit of water and has been eating very salty foods while inpatient. Review of Systems Review of Systems: All systems reviewed & are unremarkable except as noted in HPI and below Exam Narrative: Exam Narrative: General: Pleasant, well-developed, and well-nourished 40 y.o. male ambulating in the room in no acute distress. [facility]
[2020-06-03 14:00] VITALS: BP 157/94; PULSE 53; RESP 18; TEMP 36.6; O2SAT 100
[2020-06-03] MEDS: SODIUM CHLORIDE 0.9% IV 1,000 ML 150 ML IV CONT (14:30)
[2020-06-03 16:48] LABS: Creatine Kinase 1410 U/L (55-170)
[2020-06-03 20:00] VITALS: BP 134/73; PULSE 77; RESP 18; TEMP 36.5; O2SAT 100
[2020-06-03] MEDS: MELATONIN 5 MG TABLET PO (20:56)
[2020-06-03] MEDS: ENOXAPARIN 40 MG/0.4 ML SYRINGE SUB-Q (20:56)
[2020-06-04 04:00] VITALS: BP 135/77; PULSE 60; RESP 18; TEMP 36.4; O2SAT 100
[2020-06-04] MEDS: SODIUM CHLORIDE 0.9% IV 1,000 ML 125 ML IV CONT (04:50)
[2020-06-04 05:54] LABS: Hematocrit 40.7 % (42.0-52.0); Hemoglobin 13.5 g/dL (14.0-18.0); Mean Corpuscular HGB Conc 33.2 g/dl (32-36); Mean Corpuscular Volume 102.5 fl (80-100); Mean Platelet Volume 10.7 fl (7.4-10.4); Platelet Count Result 206 k/mm3 (150-375); Red Blood Count 3.97 M/mm3 (4.6-6.20); Red Cell Distribution Width 11.6 % (11.5-14.5); White Blood Count 5.2 K/mm3 (4.5-10.0)
[2020-06-04 06:03] LABS: Alanine Aminotransferase 125 U/L (4-50); Albumin Level 4.2 g/dL (3.5-5.1); Alkaline Phosphatase 35 U/L (38-126); Anion Gap 8 mmol/L (8-16); Aspartate Amino Transferase 160 U/L (17-59); Bilirubin,Total 0.3 mg/dL (0.2-1.3); Blood Urea Nitrogen 10 mg/dL (9-20); Calcium 9.4 mg/dL (8.4-10.2); Carbon Dioxide 29 mmol/L (22-30); Chloride 105 mmol/L (98-107); Creatine Kinase 971 U/L (55-170); Estimated CRCL calculation 94 ml/min; Estimated Glomerular Filt Rate > 60; Glucose 86 mg/dL (75-110); Potassium 3.7 mmol/L (3.4-5.0); Sodium 142 mmol/L (137-145)
--- NOTE | 2020-06-04 08:13 | PM.DS ---
DS: Admitting Diagnosis Admitting Diagnosis Admitting Diagnosis: Rhabdomyolysis DS: Discharge Diagnosis Discharge Diagnosis (1) Rhabdomyolysis: Code(s): M62.82 - Rhabdomyolysis Status: Acute Assessment and Plan: Discharge Summary (Date of service 06/04/20): Mr. Brown is a healthy 40 y.o. male with PMH significant for GERD who presented to the emergency department 05/29/20 with complaints of muscle soreness for 5 days. He noted that he had completed a very intense upper body workout with over 100 reps each of pushups and pull-ups followed by another workout the next day with high repetition upper body lifting. Subsequently, he noticed pain 10/10 in his upper body with associated muscle swelling with severe tenderness to touch, worsening, which prompted him to proceed to the emergency department for evaluation. Upon presentation to the emergency department, his vital signs were stable, CBC unremarkable, renal function normal, electrolytes were stable, liver enzymes markedly elevated with AST 1498 and ALT 288, and CK was >16,000. He was treated with IV fluids and admitted to the hospitalist service. He improved significantly with IV fluids. His CK trended down and LFTs improved over the course of 7 days. His pain improved significantly. He was advised not to drink any alcohol until follow-up with his PCP to ensure LFTs normalized to avoid hepatotoxicity. He was noted to have PVCs on physical exam and EKG was ordered which showed ventricular bigeminy and trigeminy with voltage criteria for LVH. Echo was ordered and showed borderline hypertrophy, likely secondary to intense physical exercise. He had no cardiovascular complaints. He felt much better overall and he was discharged in hemodynamically stable condition on the morning of 06/04/20. Worrisome signs and symptoms which would warrant return to the emergency department were discussed. Please see additional diagnoses for further information. (2) Elevated LFTs: Code(s): R94.5 - Abnormal results of liver function studies Status: Chronic Assessment and Plan: Likely secondary to rhabdomyolysis as above. Review of office visits demonstrates history of elevated LFTs which was felt to be related to alcohol use and patient cut down alcohol intake. LFTs continued to improve. Hepatitis panel was negative. Plan for repeat CMP in 1 week to ensure resolution. He was advised not to drink any alcohol until his follow-up visit to avoid hepatotoxicity. (3) Muscle strain: Code(s): T14.8XXA - Other injury of unspecified body region, initial encounter Status: Acute Assessment and Plan: Secondary to intense physical workout. Patient reports doing 100 reps of pushups and pull-ups. He developed soreness in his bilateral arms and chest wall. Strength 5/5, bilateral chair inspector strength equal. Neurovascularly intact with good pulses. No evidence to suggest compartment syndrome or neurovascular compromise. (4) Edema of both upper extremities: Code(s): R60.0 - Localized edema Status: Resolved Assessment and Plan: Resolved. He had edema of the bilateral upper extremities (R>L) which has resolved and was likely secondary to rhabdomyolysis. Bilateral UE venous doppler negative for DVT. X-ray with no fracture or joint effusion with findings of diffuse subcutaneous edema, likely secondary to rhabdomyolysis. (5) LVH (left ventricular hypertrophy): Code(s): I51.7 - Cardiomegaly Status: Acute Assessment and Plan: EKG demonstrated voltage criteria for LVH. Echocardiogram showed borderline hypertrophy, likely secondary to intense physical exercise. Continue outpatient follow-up. (6) PVC (premature ventricular contraction): Code(s): I49.3 - Ventricular premature depolarization Status: Acute Assessment and Plan: EKG demonstrated ventricular bigeminy and trigeminy, ordered due to auscultation of ectopy. H
== END 2020-06-04 08:46 | disposition home or self-care (01) | DRG 558 ==
LOC: ANHED 05:45 → ANH2MED 07:16
PROVIDERS: Physician Assistant; Admitting Provider Internal Medicine; Emergency Provider Emergency Medicine; PCP Family Medicine; Visit Provider Physician Assistant
DX: M62.82 Rhabdomyolysis (principal); I49.3 Ventricular premature depolarization; I51.7 Cardiomegaly; S46.812A Strain of other muscles, fascia and tendons at shoulder and upper arm level, left arm, initial encounter; S46.911A Strain of unspecified muscle, fascia and tendon at shoulder and upper arm level, right arm, initial encounter; S29.011A Strain of muscle and tendon of front wall of thorax, initial encounter; X50.0XXA Overexertion from strenuous movement or load, initial encounter; R60.0 Localized edema; K21.9 Gastro-esophageal reflux disease without esophagitis; Z87.891 Personal history of nicotine dependence; Z72.89 Other problems related to lifestyle
CPT/HCPCS: 36415; 73070; 80048; 80053; 80074; 80076; 81001; 82550; 82607; 82746; 84443; 85025; 85027; 93005; 93306; 93970; 96360; 96361; 96374; 99285; A9270; G0378; J1650; J1940; J7030

== ENCOUNTER 2023-08-14 08:17 | Outpatient (CLI) | payer OTHER, SELFPAY ==
--- NOTE | ~2023-08-14 | XR_ITS ---
EXAMINATION: XR elbow LT 2V DATE: 08/14/2023 08:37 INDICATION: Left elbow pain. TECHNIQUE: 2 views of left elbow were obtained. COMPARISON: None. FINDINGS: Bone alignment is normal. No fracture. There is mild elbow joint osteoarthritis. No elbow j oint effusion. IMPRESSION: 1. Mild elbow joint osteoarthritis. Reviewed, dictated and finalized at location E.
--- NOTE | ~2023-08-14 | XR_ITS ---
EXAMINATION: XR elbow RT 2V DATE: 08/14/2023 08:37 INDICATION: Right elbow pain. TECHNIQUE: 2 views of right elbow were obtained. COMPARISON: None. FINDINGS: Bone alignment is normal. No fracture. There is mild elbow joint osteoarthritis. No elbow j oint effusion. IMPRESSION: 1. Mild elbow joint osteoarthritis. Reviewed, dictated and finalized at location E.
== END 2023-08-14 08:18 ==
LOC: MICIMG 08:19
PROVIDERS: PCP Family Medicine; Visit Provider Physician Assistant Medical
DX: M19.022 Primary osteoarthritis, left elbow (principal); M19.021 Primary osteoarthritis, right elbow
CPT/HCPCS: 73070

== ENCOUNTER 2024-10-13 00:22 | Day surgery (SDC) | payer OTHER, SELFPAY ==
[2024-09-26 12:36] VITALS: BMI 28.2
--- NOTE | 2024-10-13 09:52 | WPDANESEPPF ---
Anes - Initial Pre Proc Eval Procedure: Operation Date: 10/13/24 10:30 Proposed Procedures p Screening Colonoscopy - Juan West MD Date/Time: 10/13/24 09:52 Surgeon: Juan West MD Pre Op Diagnosis: screening Patient Data Age: 44 Gender: M Height: 1.68 m Weight: 79.4 kg Allergies Allergy/AdvReac Type Severity Reaction Status Date / Time No Known Drug Allergies Allergy Unknown Unknown Verified 10/13/24 09:53 Home Medications ?Medication ?Instructions ?Recorded ?Confirmed ?Type No Home Medications 08/04/24 09/26/24 History Patient hx anesthesia problems: none Family hx anesthesia problems: none Results Review: All pre-operative results and documents have been reviewed as part of the pre-operative evaluation. [facility] Past Medical History Medical History (Updated 10/11/24 @ 13:10 by Emil Ness DO) Hypertension GERD (gastroesophageal reflux disease) Surgical History Surgical History History of nasal surgery Nasal fracture repair Family History Family History Mother Hypertension Social History Social History Social History: Brett lives at home with his . He is independent in all his ADLs. He manages a bar/restaurant. His PCP is Dr. Pina. He designates his , , as his surrogate decision maker and would like to be a full code. Smoking packs per day: 1 Smoking cigarettes per day: 20.0 Years smoked: 10 Smoking pack-years: 10.00 Smoking status: Former smoker Tobacco type: cigarettes Second hand tobacco smoke exposure: Yes Alcohol intake: current Alcohol use details: 3 alcohol drinks/day Substance use: never Substance use type: does not use Do You Feel Safe in your Home?: Yes Lack of Transportation: No Lack of Food: Never True Current Housing: I Have Housing Concerned About Future Housing: No Difficulty Paying Gas/Electric Bills: No Difficulty Paying for Meds: No Currently Unemployed: No Education: High School Diploma/GED Living arrangements: with family Occupation/Education: occupation Gender identity (if verbalized by the patient): Male Sexual Orientation (if Verbalized by the Patient): Straight or Heterosexual Spiritual care concerns: No Anes - Eval Final PreProcedure Day of Procedure 10/13/24 09:52 Patient weight: overweight Heart: regular rate and rhythm Lungs: clear to auscultation Airway: Mallampati scale class II Neurological: alert and oriented Last oral intake: >/= 8 hours ASA classification: III Emergent: no Anesthetic plan: proceed Anesthesia type and monitoring: general GIVS and standard monitoring Results Review: All pre-operative results and documents have been reviewed as part of the pre-operative evaluation. Informed Consent: The patient's anesthetic plan and its attendant risks and benefits were discussed with the patient/family/POA. Questions were solicited and answers provided to the satisfaction of the patient/family/POA.
[2024-10-13 09:53] VITALS: BP 134/102; PULSE 75; TEMP 36.6; O2SAT 100
[2024-10-13] MEDS: LACTATED RINGERS 1,000 ML 150 ML IV CONT (10:07)
--- NOTE | 2024-10-13 10:36 | PM.HPGS ---
History of Present Illness History of Present Illness Consent: Risks, benefits, and alternatives have been discussed and questions answered. Patient agrees to proceed with procedure. Chief complaint: screening Narrative: Brett Brown is a 44 year old male here for first screening colonoscopy Review of Systems Review of Systems: All systems reviewed & are unremarkable except as noted in HPI and below PMFSH Past Medical History Medical History (Updated 10/13/24 @ 10:37 by Juan West MD) Colon cancer screening Hypertension GERD (gastroesophageal reflux disease) Surgical History Surgical History History of nasal surgery Nasal fracture repair Family History Family History Mother Hypertension Social History Social History Social History: Brett lives at home with his . He is independent in all his ADLs. He manages a bar/restaurant. His PCP is Dr. Pina. He designates his , , as his surrogate decision maker and would like to be a full code. Smoking packs per day: 1 Smoking cigarettes per day: 20.0 Years smoked: 10 Smoking pack-years: 10.00 Smoking status: Former smoker Tobacco type: cigarettes Second hand tobacco smoke exposure: Yes Alcohol intake: current Alcohol use details: 3 alcohol drinks/day Substance use: never Substance use type: does not use Do You Feel Safe in your Home?: Yes Lack of Transportation: No Lack of Food: Never True Current Housing: I Have Housing Concerned About Future Housing: No Difficulty Paying Gas/Electric Bills: No Difficulty Paying for Meds: No Currently Unemployed: No Education: High School Diploma/GED Living arrangements: with family Occupation/Education: occupation Gender identity (if verbalized by the patient): Male Sexual Orientation (if Verbalized by the Patient): Straight or Heterosexual Spiritual care concerns: No Meds Home Medications and Allergies Home Medications ?Medication ?Instructions ?Recorded ?Confirmed ?Type No Home Medications 08/04/24 09/26/24 History Allergies Allergy/AdvReac Type Severity Reaction Status Date / Time No Known Drug Allergies Allergy Unknown Unknown Verified 10/13/24 09:53 Vital Signs Vital Signs - 24 hr 10/13/24 09:53 Temperature 97.8 F Pulse Rate 75 Blood Pressure 134/102 H Pulse Oximetry 100 Oxygen Delivery Room Air Exam Const: General: comfortable and no acute distress HENMT: Face/Nose/Sinus: Normal nares present Eyes: General: appearance normal, both eyes and all related structures Neck: Neck: no JVD Resp: Auscultation: clear to auscultation bilaterally Cardio: Rate: regular rate Rhythm: regular rhythm GI: Inspection: non-distended GI Palp: Yes Soft to palpation Skin: General skin exam: normal color Neuro: General: gait normal Speech: normal speech Extrem: General: normal to inspection Psych: Mental Status: mental status grossly normal Assessment and Plan Assessment and plan (1) Colon cancer screening: Code(s): Z12.11 - Encounter for screening for malignant neoplasm of colon Status: Acute Assessment and Plan: colonoscopy
[2024-10-13 10:57] VITALS: BP 112/79; PULSE 64; RESP 20; O2SAT 96
[2024-10-13 11:07] VITALS: BP 120/85; BP 121/88; PULSE 72; PULSE 80; RESP 17; RESP 19; O2SAT 98
== END 2024-10-13 11:22 | disposition home or self-care (01) ==
PROVIDERS: PCP Family Medicine; Referring Provider Physician Assistant; Visit Provider Internal Medicine Gastroenterology
PROC: 0DJD8ZZ Inspection of Lower Intestinal Tract, Via Natural or Artificial Opening Endoscopic (ICD-10-PCS; CPT 45378; principal; 2024-10-13 10:30)
DX: Z12.11 Encounter for screening for malignant neoplasm of colon (principal); K57.30 Diverticulosis of large intestine without perforation or abscess without bleeding; Z87.891 Personal history of nicotine dependence
CPT/HCPCS: 45378; J2704; J7120

== ENCOUNTER 2025-02-02 18:05 | Emergency (ER) | payer OTHER, SELFPAY ==
--- OUTSIDE RECORDS SUMMARY | 2024-09-01 12:30 | XMS_ITS ---
Author Organization [facility] [place] ([address]) Address [address] [place] [address] Care Team Providers Care Back Sizer Name Role Phone Brett Pina MD Primary Care Provider UnavailCathy Rodas Unavailable [phone] Stephanie Benoit [phone] REASON FOR VISIT Skin testing Social History Sex Assigned At : Social History Observation Description Sex Assigned At Male Encounters Encounter Location Date Provider Diagnosis [facility] [address] [place] [address] 09/01/2024 Stephanie Benoit Plan Of Treatment No Information Progress Notes * Brett YOUNGDOB: [birth year] (44 yo M)Acc No.[id number]:09/01/2024 Skin Testing Patient: Brett VITAL Provider: Jose A Benoit DNP FREIGHT AND PASSENGER AGENT-Abimael :1980 A ge:44 Y S ex:Male Date:09/01/2024 Address:[address] [place] [address] Pcp:Brett Pina MD Subjective: * Chief Complaints: * 1 . Skin testing. * Medical History: Objective: * Vitals: Assessment: Plan: * Treatment: * Billing Information: * Visit Code: * Procedure Codes: * Electronic signature of Stephanie Benoit DNP, FNP-C on 02/02/2025 at 06:07 PM CDT Sign off status: Pending * Provider: TERA Perez Date: 0 09/01/2024 Generated for Nayeli newman/Claude/Valeriy on: 1 06:07 PM CDT
--- OUTSIDE RECORDS SUMMARY | 2025-02-02 18:08 | XMS_ITS | Clinical Summary ---
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
--- OUTSIDE RECORDS SUMMARY | 2025-02-02 18:08 | XMS_ITS | Clinical Summary ---
Author Organization [facility] Address [address] [place] [address] Care Team Providers Care Auto Body Man Name Role Phone Unavailable Primary Care Provider Unavailabl e Social History Tobacco Use Types Packs/Day Years Used Date Smoking Tobacco: Never Assessed Sex and Gender Information Value Date Recorded Sex Assigned at Not on file Legal Sex Male 12:06 PM [employer] Gender Identity Not on file Sexual Orientation Not on file Plan of Treatment Health Maintenance Due Date Last Done Comments Hepatitis C Virus (HCV) Screening 1978 Hepatitis B Immunization (1 of 3 - 19+ 3-dose series) 1997 Cologuard 2023 Colonoscopy 2023 Colorectal Cancer Screening 2023 Immunochemical Fecal Occult Blood 2023 Influenza Immunization (#1) 2024 01/28/2020 SARS-COV-2 Immunization ( season) 2024 Respiratory Syncytial Virus (RSV) Immunization (Adult) (1 - 1-dose 75+ series) 2053 DTaP/Tdap/Td Immunization Discontinued 04/08/2016 TdaP Immunization Completed 04/08/2016 Human Papillomavirus (HPV) Immunization Aged Out No longer eligible b ased on patient's age to complete this topic Meningococcal Immunization (ACWY) Aged Out No longer eligible based on patient's age to complete this topic Pneumococcal Immunization Combined Aged Out No longer eligible based on patient's age to complete this topic Rotavirus Immunization Aged Out No lo nger eligible based on patient's age to complete this topic
--- OUTSIDE RECORDS SUMMARY | 2025-02-02 18:08 | XMS_ITS | Patient Health Record ---
Author Organization [facility] [employer] [place] ([address]) Address [address] [place] [address] Care Team Providers Care Healthcare Liaison Name Role Phone Brett Pina MD Primary Care Provider Unavaila Cathy Garcia Unavailable [phone] Stephanie Benoit Unavailable [phone] Allergies No Known Allergies Reason For Referral No Information Medications Medication SIG (Take, Route, Frequency, Duration) Notes Start Date End Date Status EpiPen 2-Jaspreet 0.3 MG/0.3ML as directed In jection once; Duration: 30 days 07/31/2024 Active Social History Tobacco Use: Social History Observation Description Date Details (start date - stop date) Former Smoker NA - NA Sex Assigned At : Social History Observation Description Sex Assigned At Male Tobacco Control (Standard) Question Answer Notes Tobacco use: Former smoker How long has it been since you last smoked? Grea ter than 10 years Problems Problem Type SNOMED Code ICD Code Onset Dates Problem Status W/U Status Risk Notes Problem Allergy to peanuts (17217597) Allergy to peanuts (Z91.010) Active confirmed Problem Chronic rhinitis (46610529) Chronic rhinitis (J31.0) Active confirmed Vital Signs Respiratory Rate 16 /min 07/30/2024 Height/Weig ht did not save. Blood pressure diastolic 86 mm Hg 07/30/2024 Hei ght/Weight did not save. Oximetry 99 % 07/30/2024 Height/Weight d id not save. Blood pressure systolic 138 mm Hg 07/30/2024 Heig ht/Weight did not save. Encounters Encounter Location Date Provider Diagnosis [facility] - [place] [address] [place] [address] 07/30/2024 Cathy Zayas Allergy to peanuts Z91.010 ; Anaphylactic reaction due to tree nuts and seeds, initial encounter T78.05XA ; Hypertrophy of nasal turbinates J34.3 ; Chronic rhinitis J31.0 and Elevated blood-pressure reading, without diagnosis of hypertension R03.0 Assessments Encounter Date Diagnosis (ICD Code) Assessment Notes Treatment Notes Treatment Clinical Notes Section Notes 07/30/2024 Allergy to peanuts (ICD-10 - Z91.010) Brett reports a concern for allergy to peanut. Three weeks ago, he was eating a girl senior physician cookie with peanut butter. Within minutes, he felt a sensation of throat tightening and shortness of breath. He took Benadryl immediately and symptoms improved within 1 hour. This was approximately the 4th or 5th time this happened, though does not recall when symptoms began to occur. He had previously eaten peanuts without issues. He denies GI symptoms, urticaria. He reports evaluation by PCP, who ordered an AIE, but he has not picked up yet. He cannot recall if these symptoms occur with avni nuts, but he is now avoiding all nuts. - History is concerning for IgE-mediated food allergy to peanuts. - SPT unable to be performed today given recent Benadryl use and recent ingestiono 3 weeks ago. Recommend waiting 6 weeks after ingestion for skin testing and ImmunoCaps with component testing. Labs orderd at this time, to be collected within next 3 weeks. - Recommend absolute avoidance of peanuts at this time. - Encouraged Brett to carry AIE at all times. Proper demonstration given. Additional AIE ordered. - Plan on checking ImmunoCaps and component testing as above. - Determine atopy status as stated below. - Return in 1 month for follow-up and skin testing. Instructed he must hold all antihistamines for 7-10 days prior. 07/30/2024 Anaphylactic reaction due to tree nuts and seeds, initial encounter (ICD-10 - T78.05XA) As stated above, potential symptoms of throat tightening and shortness of breath with tree nut ingestion. - History is concerning for IgE-mediated food allergy to tree nuts. - SPT unable to be performed today given recent Benadryl use and recent ingestion 3 weeks ago. Recommend waiting 6 weeks after ingestion for skin testing and ImmunoCaps with component testing. Labs orderd at this time, to be collected within next 3 weeks. - Recommend absolute avoidance of tree nuts at this time. - Encouraged Brett to carry AIE at all times. Proper demonstration given. Additional AIE ordered. - Plan on checking ImmunoCaps and component testing as above. - Determine atopy status as stated below. - Return in 1 month for follow-up and skin testing. Instructed he must hold all antihistamines for 7-10 days prior. 07/30/2024 Hypertrophy of nasal turbinates (ICD-10 - J34.3) Brett reports itchy nose in Spring and Fall. He will occasionally take an OTC antihistamine with improvement in symptoms. He reports frequent use of Benadryl for sleep, last dose within 3-4 days. - Given recent antihistamine use, SPT unable to be performed today. ImmunoCaps orderd for assessment of atopic disase. - Consider selective aeroallergen skin testing based off results. Instructed patient he will need to hold all antihsitamines, including Benadryl, for 7-10 days prior to skin testing. 07/30/2024 Chronic rhinitis (ICD-10 - J31.0) As stated above. 07/30/2024 Elevated blood-pressure reading, without diagnosis of hypertension (ICD-10 - R03.0) BP elevated today without symptoms of urgency or emergency. Continue serial checks and follow-up with PCP 07/30/2024 Other Plan Of Treatment Pending Test Test Name Order Date -F020 [place] 07/30/2024 -F201 Pecan Nut 07/30/2024 -F203 Pistachio Nut 07/30/2024 -IgE [place] Nut w/ Component Reflex 12/2024 -IgE Cashew Nut w/ Component Reflex 12/2024 -IgE [place] w/ Component Reflex 07/31/19 25 -IgE Hazelnut w/ Component Reflex 2024 -Respiratory Allergens w/Total IgE Area 8 07/30/2024 -IgE Peanut w/Component Profile 07/31/19 25 Insurance Providers Payer Name Payer Address Payer Phone Subscriber Number Group Number Insured Name Patient Relationship to Insured Coverage Start Date Coverage End Date [facility] [address] [place] [address] [phone] [id number] Brett Santiago i Self - patient is the insured
--- OUTSIDE RECORDS SUMMARY | 2025-02-02 18:08 | XMS_ITS | Patient Health Record ---
Author Organization [facility] Address [address] [place], [place] [id number] Care Team Providers Care Call Manager Name Role Phone CHRISTIANA GARCÍA Unavailable [phone] Brett Pina Unavailable Unavailable Allergies No Known Allergies Reason For Referral No Information Social History Tobacco Use: Social History Observation Description Date Details (start date - stop date) Former Smoker NA - NA Tobacco Use/Smoking Question Answer Notes Tobacco use: former smoker Plan Of Treatment No Information Insurance Providers Payer Name Payer Address Payer Phone Subscriber Number Group Number Insured Name Patient Relationship to Insured Coverage Start Date Coverage End Date [facility] [address] [address] [place] [address] [id number] BRETT MIDDLETON Self - patient is the insured
--- NOTE | 2025-02-02 18:25 | PC.NURSE ---
Pt. alerted this RN he is leaving before being triage. Gait steady, speech clear.
== END 2025-02-02 18:25 | disposition left against medical advice (07) ==
LOC: ANHED 18:57
PROVIDERS: PCP Family Medicine
DX: Z53.21 Procedure and treatment not carried out due to patient leaving prior to being seen by health care provider (principal)
CPT/HCPCS: 99199

== ENCOUNTER 2025-02-03 16:38 | Emergency (ER) | payer OTHER, SELFPAY ==
[2025-02-03 16:45] VITALS: BP 158/102; PULSE 86; RESP 16; TEMP 37.2; O2SAT 100
--- NOTE | 2025-02-03 17:03 | ED_ITS ---
HPI - General Adult General Chief complaint: Unspecified Stated complaint: High B/P Time Seen by Provider: 02/03/25 17:04 Source: patient Mode of arrival: ambulatory Limitations: no limitations History of Present Illness HPI narrative: 44-year-old male presents with concern high blood pressure. Reports he has been told that his doctor over the years it is foot pressure was high, he is not taking any antihypertensive. Reports he is under lot of stress lately and has drinking more than usual, he checked his blood pressure today and it was high, he went to [facility] checks it again and it was still high 175/107. He reports some mild headache today with an episode of blurry vision. MD complaint: High blood pressure Related Data Home Medications ?Medication ?Instructions ?Recorded ?Confirmed ?Last Taken ?Type No Home Medications 08/04/24 02/03/25 U nknown History Allergies Allergy/AdvReac Type Severity Reaction Status Date / Time No Known Drug Allergies Allergy Unknown Unknown Verified 02/03/25 16:43 Review of Systems Review of Systems: CONSTITUTIONAL: Denies malaise, chills, sweats, or fever. EYES: Denies current visual changes CARDIOVASCULAR: Denies chest pain, palpitations, or edema. RESPIRATORY: Denies cough or dyspnea. MUSCULOSKELETAL: Denies back pain, joint pain, or myalgia. NEUROLOGIC: Denies numbness, weakness. Reports headache. PSYCHIATRIC: Reports stress All systems reviewed & are unremarkable except as noted in HPI and below PMFSH Past Medical History Medical History (Updated 02/03/25 @ 17:16 by Pamela Figueroa NP) Colon cancer screening Hypertension GERD (gastroesophageal reflux disease) Surgical History Surgical History History of nasal surgery Nasal fracture repair Family History Family History Mother Hypertension Social History Social History Social History: Brett lives at home with his . He is independent in all his ADLs. He manages a bar/restaurant. His PCP is Dr. Pina. He designates his , , as his surrogate decision maker and would like to be a full code. Smoking packs per day: 1 Smoking cigarettes per day: 20.0 Years smoked: 10 Smoking pack-years: 10.00 Smoking status: Former smoker Tobacco type: cigarettes Second hand tobacco smoke exposure: Yes Alcohol intake: current Alcohol use details: 3 alcohol drinks/day Substance use: never Substance use type: does not use Other substance usage details: Edibles/pen Do You Feel Safe in your Home?: Yes Lack of Transportation: No Lack of Food: Never True Current Housing: I Have Housing Concerned About Future Housing: No Difficulty Paying Gas/Electric Bills: No Difficulty Paying for Meds: No Currently Unemployed: No Education: High School Diploma/GED Living arrangements: with family Occupation/Education: occupation Gender identity (if verbalized by the patient): Male Sexual Orientation (if Verbalized by the Patient): Straight or Heterosexual Spiritual care concerns: No Comments At time of signature, agree with nursing past medical, surgical, social and family history. There is no relevant family history pertinent to the presenting complaint Exam Narrative: GENERAL: Well-appearing, well-nourished, and in no acute distress. HEAD: Normocephalic, atraumatic. EYES: PERRLA, sclera clear, and EOMI. No nystagmus. ENT: Nares clear, turbinates pink, no rhinorrhea or epistaxis. Mucous membranes moist. NECK: Supple. No lymphadenopathy. No jugular venous distension, thyromegaly, or carotid bruits. Carotids were easily palpable bilaterally. CHEST: No respiratory distress. Clear to auscultation. No bony deformities, no asymmetry. Speaks in full sentences. HEART: Regular rate and rhythm. No murmur heard. Normal peripheral pulses. SKIN: Warm, dry, no visible rash. NEURO: Alert and oriented x3. No focal deficits. Cranial nerves II through XII grossly intact PSYCH: Normal mood and affect Course Course Emergency Course: Patient is aware of diagnosis, understands and agrees to treatment plan. Anticipatory guidance given. Patient agrees to follow-up as directed and is aware of reasons to seek care at the emergency department. Portions of this record may have been created with voice recognition software Level of Care: Express Care Visit Vital Signs Vital signs: Reviewed. Medical Decision Making MDM Narrative Medical decision making narrative: The patient was evaluated by myself in the express care. History is obtained from patient who is an independent historian and physical exam was performed.? Available medical records were reviewed at this time. ? Exam findings show no acute concerns or changes; patient is non-toxic appearing and is in no distress. Patient is appropriate for outpatient treatment and follow-up. ? I have evaluated and discussed social determinants of health with the patient that could potentially impact subsequent diagnosis and treatment plans. Patient was offered transfer to emergency room for further evaluation versus swelling and with his doctor tomorrow. Patient wants to follow-up with his doctor tomorrow. He says he will go to the emergency room if his symptoms worsen. Blood pressure in the clinic was 158/102. Differential diagnosis and treatment plan were discussed with the patient. Patient agrees with discussion and after shared medical decision making agrees with plan of care. All questions were answered to the patient's satisfaction. Critical Care Time Critical Care Time Critical Care Time: No Discharge Plan Discharge Clinical Impression: High blood pressure Patient Disposition: Home Condition: Stable Instructions: Hypertension (ED) Additional Instructions: 1) Please follow-up with your primary care doctor in the next 1-2 days. 2) If you have any worsening of symptoms or any other urgent concerns please go to the ER. 3) Please take medications as prescribed and continue taking your home medications as usual. 4) Please read and follow information included in discharge instructions. Patient Language: Faroese Prescriptions: No Action No Home Medications Follow-up/Referrals: Brett Pina MD [Primary Care Provider, Family Practice] - 1 Day Referral Note: Patient presented with high blood pressure Time of Disposition: 17:15
== END 2025-02-03 17:19 | disposition home or self-care (01) ==
PROVIDERS: Emergency Provider Nurse Practitioner; PCP Family Medicine
DX: R03.0 Elevated blood-pressure reading, without diagnosis of hypertension (principal); K21.9 Gastro-esophageal reflux disease without esophagitis; Z87.891 Personal history of nicotine dependence
CPT/HCPCS: 99211; G0463